=== PATIENT | female | born 1975 | race Caucasian/White ===

== ENCOUNTER → 2019-09-03 | Outpatient (CLI) | payer OTHER | END | disposition home or self-care (01) | LOC: LAB 15:07 | PROVIDERS: ATTEND Internal Medicine Pulmonary Disease | DX: Z20.828 Contact with and (suspected) exposure to other viral communicable diseases (principal) | CPT/HCPCS: U0003-CS ==

== ENCOUNTER → 2019-11-02 | Outpatient (CLI) | payer OTHER | END | disposition home or self-care (01) | LOC: LAB 08:44 | PROVIDERS: ATTEND Internal Medicine Pulmonary Disease | DX: Z20.828 Contact with and (suspected) exposure to other viral communicable diseases (principal) | CPT/HCPCS: 87426; U0003 ==

== ENCOUNTER → 2019-11-10 | Outpatient (CLI) | payer OTHER | END | disposition home or self-care (01) | LOC: LAB 13:02 | PROVIDERS: ATTEND Internal Medicine Pulmonary Disease | DX: Z20.828 Contact with and (suspected) exposure to other viral communicable diseases (principal) | CPT/HCPCS: 87426 ==

== ENCOUNTER → 2019-11-19 | Outpatient (CLI) | payer OTHER | END | disposition home or self-care (01) | LOC: LAB 13:43 | PROVIDERS: ATTEND Internal Medicine Pulmonary Disease | DX: Z20.828 Contact with and (suspected) exposure to other viral communicable diseases (principal) | CPT/HCPCS: U0003-CS ==

== ENCOUNTER → 2019-11-26 | Outpatient (CLI) | payer OTHER ==
--- NOTE | 2019-11-26 14:09 | RAD ---
DATE: 11/26/2019 11:28 AM EXAM: MAMMO MARIOLA SCREENING BILATERAL HISTORY: Screening mammograms COMPARISON: May 31, 2011 Bilateral CC and MLO views of the breasts were performed. Bilateral breast tomosynthesis was performed in CC and MLO projections. This study was interpreted with the benefit of Computerized Aided Detection (CAD). FINDINGS: Breast Density: HETERO The breast parenchyma Is heterogeneously dense, which could reduce sensitivity of mammography. Breast parenchyma level C Left breast: Focal asymmetry within the left upper outer breast approximately 7.2 cm from the nipple. Right breast: No suspicious microcatheter fixation, mass or architectural distortion. IMPRESSION: Focal asymmetry within the left upper outer breast. Recommend spot compression views and ML view. Ultrasound may also be indicated depending on the findings. BI-RADS CATEGORY: 0 INCOMPLETE: NEEDS ADDITIONAL IMAGING EVALUATION AND/OR PRIOR MAMMOGRAMS FOR COMPARISON. RECOMMENDED FOLLOW-UP: ADD ADDITIONAL IMAGING spot compression views and MLO view. Targeted ultrasound may also be required. PQRS compliance statement: Patient information was entered into a reminder system with a target due date for the next mammogram. Mammography is a sensitive method for finding small breast cancers, but it does not detect them all and is not a substitute for careful clinical examination. A negative mammogram does not negate a clinically suspicious finding and should not result in delay in biopsying a clinically suspicious abnormality. "Our facility is accredited by the [employer] Mammography Program."
== END ==
LOC: MAMMO 10:39
PROVIDERS: ATTEND Family Medicine
DX: Z12.31 Encounter for screening mammogram for malignant neoplasm of breast (principal)
CPT/HCPCS: 77063; 77067

== ENCOUNTER → 2019-12-14 | Outpatient (CLI) | payer OTHER ==
--- NOTE | 2019-12-14 12:21 | RAD ---
Examination: DIGITAL DIAGNOSTIC LT History: Reason: ABNORMAL MAMMOGRAM CALLBACK / Spl. Instructions: / History: Comparison/Correlation: 11/26/2019 screen mammogram, 09/30/2011 screening mammogram Findings: The breasts are heterogeneously dense and this may limit detection of small masses. Mediolateral view of the left breast was obtained. Spot compression imaging of the left upper outer breast in the MLO and CC projections was performed. 3-D imaging of the left breast was performed. CAD utilized. No persistent suspicious asymmetry is evident on spot compression. Impression: BI-RADS Category 1-negative. Annual screening mammography is recommended. Electronically signed by: Ruddy Oquendo MD (12/14/2019 12:18 PM) [id number]
== END ==
LOC: MAMMO 10:34
PROVIDERS: ATTEND Family Medicine
DX: R92.2 Inconclusive mammogram (principal)
CPT/HCPCS: 77065

== ENCOUNTER → 2020-01-13 | Outpatient (CLI) | payer OTHER | LOC: LAB 11:21 | PROVIDERS: ATTEND Internal Medicine Pulmonary Disease | DX: U07.1 COVID-19 (principal) | CPT/HCPCS: U0003 ==

== ENCOUNTER → 2020-11-30 | Outpatient (CLI) | payer OTHER ==
[2020-11-30 09:55] LABS: BASO % 0 % (0-3); EOS # 0.2 x10^3/uL (0.0-0.7); EOS % 3 % (0-3); HEMATOCRIT 40.4 % (36.0-47.0); HEMOGLOBIN 13.7 g/dL (12.0-15.5); LYMPH % 27 % (24-48); MEAN CORPUSCULAR HEMOGLOBIN 31 pg (25-35); MEAN CORPUSCULAR HGB CONC 34 g/dL (31-37); MEAN CORPUSCULAR VOLUME 91 fL (79-100); MONO # 0.5 x10^3/uL (0.0-1.1); MONO % 7 % (0-9); NEUT # 4.7 x10^3/uL (1.8-7.7); NEUT % 63 % (31-73); PLATELET COUNT 303 x10^3/uL (140-400); RED BLOOD COUNT 4.43 x10^6/uL (3.50-5.40); RED CELL DISTRIBUTION WIDTH 12.3 % (11.5-14.5); WHITE BLOOD COUNT 7.5 x10^3/uL (4.0-11.0)
[2020-11-30 10:29] LABS: ALBUMIN 3.5 g/dL (3.4-5.0); ALBUMIN/GLOBULIN RATIO 0.9 (1.0-1.7); CALCIUM 8.4 mg/dL (8.5-10.1); CREATININE 0.9 mg/dL (0.6-1.0); GFR 68.3; POTASSIUM 4.7 mmol/L (3.5-5.1); TOTAL BILIRUBIN 0.6 mg/dL (0.2-1.0); TOTAL PROTEIN 7.3 g/dL (6.4-8.2)
[2020-11-30 10:31] LABS: CHOLESTEROL/HDL RATIO 3.3
[2020-11-30 10:33] LABS: FREE T4 1.06 ng/dL (0.76-1.46); THYROID STIM HORMONE (TSH) 2.169 uIU/mL (0.358-3.74)
== END ==
LOC: LAB 08:20
PROVIDERS: ATTEND Nurse Practitioner
DX: Z13.220 Encounter for screening for lipoid disorders (principal); R53.83 Other fatigue
CPT/HCPCS: 36415; 80053; 80061; 84439; 84443; 85025

== ENCOUNTER → 2021-01-24 | Outpatient (CLI) | payer OTHER ==
--- NOTE | 2021-01-24 14:38 | RAD ---
Bilateral digital screening 2-D and 3-D (tomosynthesis) mammogram: Reason for examination: Routine screening. Comparison is made to previous study dated 11/26/2019 and 05/31/2011. Bilateral mammograms in CC and oblique projections were obtained with 2-D imaging and 3-D tomosynthes is imaging and reviewed on the workstation. Interpretation was made with the benefit of CAD. Findings: Breast density: Category C. The breasts are heterogeneously dense, which may obscure small masses. There is a tubular serpiginous mass in the 9-10 o'clock region of the left breast about 2 to 5 cm fro m the nipple. It is fairly superficial and could represent dilated blood vessels. Again seen is a small oval elongated mass in the left upper outer quadrant, 2:00 position about 9 cm from the nipple. This is not changed since 1999 and appears to represent a prominent vein on 3-D imag es. There are no malignant appearing calcifications or architectural distortion. Impression: Tubular serpiginous structure in the 9 to 10:00 position of the left breast 2 to 5 cm from the nipple . This could represent dilated blood vessels for duct ectasia. A solid mass such as a fibroadenoma or tubular adenoma would also be consideration. ASSESSMENT: 0. Incomplete. Recommendations: Targeted left breast ultrasound. If this is not seen on ultrasound, a diagnostic lef t mammogram is recommended. The patient will be notified of results and asked to schedule for additional imaging. This patient's information has been entered into a reminder system for the patient to be notified with the results o f her examination and a target date for the next mammogram. Your patient's mammogram demonstrates that she has dense breast tissue (breast density category C or D), which could hide abnormalities, and if she has other risk factors for breast cancer that have bee n identified, she might benefit from supplemental screening tests that may be suggested by you as her ordering physician. Dense breast tissue, in and of itself, is a relatively common condition. Therefo re, this information is not provided to cause undue concern, but rather to raise your awareness and t o promote discussion with your patient regarding the presence of other risk factors, in addition to d ense breast tissue. Electronically signed by: Viktoria Washburn MD (01/24/2021 2:36 PM) [employer]
== END ==
LOC: MAMMO 08:10
PROVIDERS: ATTEND Family Medicine
DX: Z12.31 Encounter for screening mammogram for malignant neoplasm of breast (principal)
CPT/HCPCS: 77063; 77067

== ENCOUNTER → 2021-02-01 | Outpatient (CLI) | payer OTHER ==
--- NOTE | 2021-02-01 14:52 | RAD ---
PROCEDURE: MG DIAGNOSTICUNILAT MAMMO, US BREAST LT HISTORY: The patient is 45 years old and is seen for Reason: CALLBACK / Spl. Instructions: / History : . COMPARISON: January 24, 2021 and November 26, 2019 TECHNIQUE: Spot compression views of the left breast CC and MLO. Targeted ultrasound was also perform ed. DENSITY: The breast parenchyma is heterogeneously dense. This may lower the sensitivity of mammograph y. FINDINGS: Mammogram: Focal asymmetry within the left medial breast is less apparent on spot compression views. Ultrasound: Dense fibroglandular tissue within the region of the mammographic finding. No ductal ecta kaylen. No solid mass identified. No suspicious posterior shadowing. IMPRESSION: 1. Focal asymmetry within the left medial breast is less apparent on spot compression views and kathia esponds with dense fibroglandular tissue on ultrasound. Recommend return to annual screening. Recommend annual screening mammograms per [employer] guidelines. She will be due in one year. BI-RADS category 2 Benign Patient entered into a reminder system for annual screening mammogram. Electronically signed by: Rex Betancur DO (02/01/2021 2:50 PM) [id number]
== END ==
LOC: US 13:34
PROVIDERS: ATTEND Family Medicine
DX: R92.2 Inconclusive mammogram (principal)
CPT/HCPCS: 76641; 77065